=== PATIENT | female | born 1950 | race Hispanic/Latino ===

== ENCOUNTER 2023-09-29 05:41 | Day surgery (SDC) | payer OTHER, MEDICARE ==
[2023-09-26 11:58] LABS: BASOPHILS # (AUTO) 0.05 K/uL (0.00-0.20); BASOPHILS % (AUTO) 0.7 % (0.0-5.0); EOSINOPHILS # (AUTO) 0.18 K/uL (0.00-0.70); EOSINOPHILS % (AUTO) 2.5 % (0.0-8.0); HEMATOCRIT 29.3 % (36-48); IMMATURE GRANULOCYTE ABSOLUTE 0.07 K/uL (0-1); LYMPHOCYTES # (AUTO) 1.5 K/uL (1.0-4.8); MEAN CORPUSCULAR HEMOGLOBIN 23.8 pg (27.0-33.0); MEAN CORPUSCULAR VOLUME 79.4 fL (79-99); MONOCYTES # (AUTO) 0.6 K/uL (0.1-1.0); MONOCYTES % (AUTO) 7.9 % (3.0-13.0); NEUTROPHILS # (AUTO) 4.7 K/uL (1.8-7.7); NEUTROPHILS % (AUTO) 66.9 % (40.0-77.0); PLATELET COUNT (AUTO) 491 K/uL (130-400); RED BLOOD CELL COUNT(AUTO) 3.69 MIL/uL (4.00-5.50); WHITE BLOOD COUNT (AUTO) 7.1 K/uL (4.8-10.8)
[2023-09-26 12:07] VITALS: BP 116/70; PULSE 91; RESP 19
[2023-09-26 12:10] LABS: CREATININE 0.8 mg/dL (0.5-1.5); POTASSIUM 3.8 mmol/L (3.5-5.1)
[2023-09-26 12:11] LABS: INR < 0.93 (0.85-1.15); PROTHROMBIN TIME 10.3 SEC (9.6-11.6)
[2023-09-26 12:13] LABS: PARTIAL THROMBOPLASTIN TIME 28.2 SEC (26.3-35.5)
[2023-09-26 12:33] LABS: B-TYPE NATRIURETIC PEPTIDE 209 pg/mL (0-100)
[~2023-09-29] VITALS: Ht 160 cm; Wt 61.1 kg
[~2023-09-29 05:41] MED LIST: BENZ-226 PO; BIOT1TAB7 PO; CILO50TA2 PO; CLOP75TA32 PO; HYDR200T75 PO; INSU100C6 SQ; LEVO75CA5 PO; LINA5TAB PO; LISI10TA24 PO; LORA10TA7 PO; MIRA50TA PO; MIRT-22 PO; PANT40TA54 PO; PARO-37 PO; PIND5 PO; PIOG15TA66 PO; PRED2.5T PO; [UNRECOGNIZED DRUG - CODE] PO
[2023-09-29 06:05] VITALS: BP 152/83; PULSE 78; RESP 13
[2023-09-29] MEDS ORDERED: 0.9%NACL 1000ML 1,000 ML IV ONE (06:05)
[2023-09-29] MEDS ORDERED: LIDOCAINE HCL 400MG/20ML VIAL ONE (08:18)
[2023-09-29] MEDS ORDERED: IODIXANOL 320 MG/ML 100 ML VIAL ONE (08:19)
[2023-09-29] MEDS ORDERED: MIDAZOLAM HCL 1 MG/ML 2ML VIAL ONE (08:19)
[2023-09-29] MEDS ORDERED: FENTANYL CITRATE PF 50 MCG/1 ML 2ML VIAL ONE (08:19)
[2023-09-29] MEDS ORDERED: NITROGLYCERIN 50MG VIAL ONE (08:19)
[2023-09-29] MEDS ORDERED: NICARDIPINE 25MG INJ IV ONE (08:19)
[2023-09-29] MEDS ORDERED: HEPARIN 10,000 UNIT/10ML (1,000 UNIT/ML) VIAL ONE (08:19)
== END 2023-09-29 10:22 | disposition home or self-care (01) ==
LOC: DAH 05:41
PROVIDERS: ATTEND Internal Medicine Cardiovascular Disease
DX: I73.9 Peripheral vascular disease, unspecified (principal); Z53.8 Procedure and treatment not carried out for other reasons; E11.9 Type 2 diabetes mellitus without complications; I10 Essential (primary) hypertension; E78.5 Hyperlipidemia, unspecified; K21.9 Gastro-esophageal reflux disease without esophagitis; E03.9 Hypothyroidism, unspecified; F41.8 Other specified anxiety disorders; Z98.890 Other specified postprocedural states; Z79.899 Other long term (current) drug therapy; Z88.1 Allergy status to other antibiotic agents; Z88.8 Allergy status to other drugs, medicaments and biological substances
CPT/HCPCS: 80048; 83880; 85025; 85610; 85730; 36415; 71045; 93005; 82948; A4663; J3490 ×2; J7030; J1644; A4215; A4223; A4222; A4221; J2250; J3010; Q9967

== ENCOUNTER 2023-10-12 05:37 | Day surgery (SDC) | payer OTHER, MEDICARE ==
[2023-10-10 09:20] LABS: BASOPHILS # (AUTO) 0.05 K/uL (0.00-0.20); BASOPHILS % (AUTO) 0.7 % (0.0-5.0); EOSINOPHILS # (AUTO) 0.12 K/uL (0.00-0.70); EOSINOPHILS % (AUTO) 1.7 % (0.0-8.0); HEMATOCRIT 31.9 % (36-48); IMMATURE GRANULOCYTE ABSOLUTE 0.02 K/uL (0-1); LYMPHOCYTES # (AUTO) 1.8 K/uL (1.0-4.8); LYMPHOCYTES % (AUTO) 26.4 % (21.0-51.0); MEAN CORPUSCULAR HGB CONC 30.1 g/dL (32.0-36.0); MEAN CORPUSCULAR VOLUME 76.5 fL (79-99); MONOCYTES # (AUTO) 0.5 K/uL (0.1-1.0); MONOCYTES % (AUTO) 7.4 % (3.0-13.0); NEUTROPHILS # (AUTO) 4.4 K/uL (1.8-7.7); NEUTROPHILS % (AUTO) 63.5 % (40.0-77.0); PLATELET COUNT (AUTO) 403 K/uL (130-400); RED BLOOD CELL COUNT(AUTO) 4.17 MIL/uL (4.00-5.50); RED CELL DISTRIBUTION WIDTH 18.2 % (11.0-15.5); WHITE BLOOD COUNT (AUTO) 6.9 K/uL (4.8-10.8)
[2023-10-10 09:37] LABS: CREATININE 0.8 mg/dL (0.5-1.5)
[2023-10-10 09:38] LABS: INR <= 0.93 (0.85-1.15); PROTHROMBIN TIME 10.1 SEC (9.6-11.6)
[2023-10-10 09:39] LABS: PARTIAL THROMBOPLASTIN TIME 26.2 SEC (26.3-35.5)
[2023-10-10 09:43] VITALS: BP 182/93; PULSE 83; RESP 16
[2023-10-10 09:46] LABS: B-TYPE NATRIURETIC PEPTIDE 113 pg/mL (0-100)
[~2023-10-12] VITALS: Ht 162.6 cm; Wt 58.4 kg
[2023-10-12] VITALS (9 sets, daily range): BP systolic 121–181; BP diastolic 44–91; PULSE 75–84; RESP 15–16
[~2023-10-12 05:37] MED LIST changes: -BENZ-226 PO; +PIND10TA2 PO; -PIND5 PO
[2023-10-12] MEDS ORDERED: IODIXANOL 320 MG/ML 100 ML VIAL ONE (07:06)
[2023-10-12] MEDS ORDERED: HEPARIN 10,000 UNIT/10ML (1,000 UNIT/ML) VIAL ONE (07:06)
[2023-10-12] MEDS: 0.9%NACL 1000ML 1,000 ML IV ONE (07:07)
[2023-10-12] MEDS ORDERED: LIDOCAINE HCL 400MG/20ML VIAL ONE (07:08)
[2023-10-12] MEDS ORDERED: NITROGLYCERIN 50MG/D5W 250ML 1 BOT ONE (07:08)
[2023-10-12] MEDS ORDERED: NICARDIPINE 25MG INJ IV ONE (07:17)
[2023-10-12] MEDS ORDERED: FENTANYL CITRATE PF 50 MCG/1 ML 2ML VIAL ONE ×2 (07:30→09:48)
[2023-10-12] MEDS ORDERED: MIDAZOLAM HCL 1 MG/ML 2ML VIAL ONE ×2 (07:30→09:20)
[2023-10-12] MEDS ORDERED: LABETALOL 20MG VIAL IV ONE (08:03)
[2023-10-12] MEDS ORDERED: HYDRALAZINE 20MG/ML VIAL ONE (08:03)
[2023-10-12] MEDS ORDERED: CLOPIDOGREL 300MG TAB ONE (08:27)
[2023-10-12] MEDS ORDERED: GLUCAGON 1MG KIT 1 MG ML IM PRN (11:00)
[2023-10-12] MEDS ORDERED: 0.9%NACL 1000ML 1,000 ML IV SCH (11:00)
[2023-10-12] MEDS ORDERED: DEXTROSE 50%-WATER 50 ML DISP.SYRIN IV PRN (11:00)
[2023-10-12] MEDS ORDERED: HYDRALAZINE 20MG/ML VIAL IV PRN (11:30)
[2023-10-12] MEDS: INSULIN HUMULIN R 100 UNIT/ML 3ML SQ SCH (11:33)
== END 2023-10-12 15:11 | disposition home or self-care (01) ==
LOC: DAH 05:37
PROVIDERS: ATTEND Internal Medicine Cardiovascular Disease
DX: I70.211 Atherosclerosis of native arteries of extremities with intermittent claudication, right leg (principal); E11.51 Type 2 diabetes mellitus with diabetic peripheral angiopathy without gangrene; I10 Essential (primary) hypertension; E78.5 Hyperlipidemia, unspecified; E03.9 Hypothyroidism, unspecified; K76.0 Fatty (change of) liver, not elsewhere classified; K21.9 Gastro-esophageal reflux disease without esophagitis; R00.0 Tachycardia, unspecified; F41.9 Anxiety disorder, unspecified; F32.A Depression, unspecified; Z90.710 Acquired absence of both cervix and uterus; Z90.49 Acquired absence of other specified parts of digestive tract; Z98.41 Cataract extraction status, right eye; Z98.42 Cataract extraction status, left eye; Z98.890 Other specified postprocedural states; Z79.899 Other long term (current) drug therapy; Z79.01 Long term (current) use of anticoagulants
CPT/HCPCS: 80048; 83880; 85025; 85610; 85730; 36415 ×2; 71045; 93005; 75716; 85347 ×4; 82948 ×2; J1815; A4223 ×3; C1725 ×3; C1894 ×2; C1769 ×5; C1760; C1893; C1887; C2623; C1761; C9772; J3010 ×2; J3490 ×3; J7030; J0360; J1644 ×5; J2250 ×2; Q9967; A4215; A4335; A4222; A4221; A4663; A4216; 96360; 96361; 99156; 99157